=== PATIENT | male | born 1975 | race Caucasian/White ===

== ENCOUNTER 2024-06-03 14:54 | Emergency (ER) | payer OTHER ==
[2024-06-03] MEDS ORDERED: TDAP (DIPHTH,PERTUSS(ACELL),TET VAC) 0.5 ML VIAL IMVAC ONE (15:33)
[2024-06-03] MEDS ORDERED: LIDOCAINE 1% 20 ML MDV ONE (15:33)
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
[2024-06-03 16:43] VITALS: BP 141/100; TEMP 98.7; O2SAT 97
== END 2024-06-03 16:42 | disposition home or self-care (01) ==
LOC: ER 14:54
DX: S51.811A Laceration without foreign body of right forearm, initial encounter (principal)
CPT/HCPCS: 96372; 99284; 13120; J2001